=== PATIENT | female | born 1990 | race African-American/Black ===

== ENCOUNTER 2018-08-16 18:08 | Inpatient (IN) | payer OTHER ==
[~2018-08-16] VITALS: Ht 162.6 cm; Wt 58.7 kg
--- NOTE | 2018-08-16 18:43 | NUR ---
CALLED [facility] AND SPOKE WITH ROMARIO IN CT; AWARE OF STAT MRI ORDER TO BE DONE TODAY PER MD.
--- NOTE | 2018-08-16 19:08 | NUR ---
REPORT TO GRACE MISTRY
[2018-08-16] MEDS ORDERED: POTASSIUM CHLORIDE 20 MEQ TAB CR PO STA (19:10)
--- NOTE | 2018-08-16 19:12 | NUR ---
CALLED EMS FOR TRANSPORT.
[2018-08-16] MEDS ORDERED: METHYLPREDNISOLONE SOD SUCC 1,000 MG/8 ML VIAL IV SCH (19:45)
[2018-08-16] MEDS ORDERED: SODIUM CHLORIDE 0.9% IV SCH (20:00)
[2018-08-16] MEDS ORDERED: METHYLPREDNISOLONE SOD SUCC IV SCH (20:00)
--- NOTE | 2018-08-16 21:31 | NUR ---
PT ARRIVED BY [facility] TO ROOM 105, PT ABLE TO AMBULATE WITHOUT ASSIST TO HOSPITAL BED. PT IS AAOX3, RR EVEN AND NON-LABORED, ON RA. NO S/SX OF DISTRESS NOTED. PT ORIENTED TO HOSPITAL ROOM, CALL LIGHT, PHONE, BED CONTROLS AND LIGHTS. LEFT PT LAYING SEMI FOWLERS IN BED, BED IN LOW LOCKED POSITION, SIDE RAILS UPX2, CALL LIGHT AND PHONE WITHIN REACH. Addendum: 08/16/18 at 2211 by Kimberly Leal RN INCORRECT TIME, CORRECT TIME IS AT 2030
--- NOTE | 2018-08-16 21:31 | NUR ---
PT TRANSPORTED BY WHEELCHAIR TO MRI. PT IN STABLE CONDITION.
[2018-08-16] MEDS ORDERED: GADOBENATE DIMEGLUMINE 1 ML IV ONE (21:39)
--- NOTE | 2018-08-16 23:30 | NUR ---
PT TRANSPORTED BACK FROM RADIOLOGY BY WHEELCHAIR, PT IN STABLE CONDITION.
[2018-08-16] MEDS: SODIUM CHLORIDE 0.9% IV SCH (23:45)
[2018-08-16] MEDS: METHYLPREDNISOLONE SOD SUCC IV SCH (23:45)
[2018-08-17] VITALS (11 sets, daily range): BP systolic 107–120; BP diastolic 51–78
--- NOTE | 2018-08-17 01:04 | Diagnostic Imaging Report ---
MRI of the cervical, thoracic and lumbar spine with and without contrast. History: Numbness and tingling in the lower extremity progressively worsening since last week. Comparison studies: None available at the time of interpretation. Technique: Precontrast spine: Sagittal T1, T2 and inversion recovery, axial T1 and T2 cervical, thoracic and lumbar spine. Axial T2 GRE of cervical spine, coronal T2 of thoracic and lumbar spine, axial PD of lumbar spine. Postcontrast axial and sagittal T1 Intravenous contrast: 10 cc of MultiHance. Findings: Cervical spine: Spinal Cord: T2 lesion load: 3, particularly, 1. Subtle T2 hyperintense lesion in the mid dorsal cord at level C2-C3 2. A 4.5 mm (CC dimension) T2 hyperintense and mild T1 hypointense lesion in left lateral aspect of the cord at level C3. 3. A 7.7 mm (CC dimension) T2 hyperintense, T1 hypointense lesion within the central cord at level C7. T1 hypointense foci: 2. Enhancement: None. Thoracic and lumbar spine: Spinal Cord: Conus medullaris terminates at level inferior endplate of L2. T2 lesion load:3., Particularly, 1. Subtle T2 hyperintense lesion in the central/dorsal cord at level T1-T2. 2. T2 hyperintense lesion in the central cord at level T4-T5. 3. Central cord lesion(approximately measures 8.5 mm in craniocaudad dimension) at level T7-T8 involving greater than two thirds of the cross-sectional area of the cord. T1 hypointense foci:None. Enhancement: Minimal enhancement of central cord lesion at level T7-T8 best seen in image 7, series 27 suggestive of active demyelination(suboptimal evaluation due to motion artifacts of postcontrast T1 axial sequence). Additional comments: Alignment: Normal lordosis. No scoliosis.. Cervicomedullary junction: No abnormalities. The foramen magnum is patent. No Chiari one malformation.. Soft tissues: No signal abnormalities.. Vertebral bodies: No compression fractures from C2 through L5. 5 mm well-circumscribed T1/T2 hyperintense, STIR hypointense lesion in L1 vertebral body may either represent focal fat or lipid rich hemangioma. Degenerative changes: No abnormality. IMPRESSION: Multiple short segment, T2 hyperintense lesions within the cervical and thoracic cord, with a single enhancing lesion within the thoracic cord at level T7-T8. Findings represent demyelinating process like multiple sclerosis. Differential consideration includes ADEM, Neuromyelitis optica in appropriate clinical setting. Recommendation: Further evaluation with MRI of the brain with and without contrast for complete assessment. Findings were informed to FEDE Harris taking care of this patient at 12:45 AM on 08/17/2018 and was advised to inform the referring Neurologist. Signed by: Dr. Marilou Valdez M.D. on 08/17/2018 1:01 AM
--- NOTE | 2018-08-17 01:22 | NUR ---
NOTIFIED MD MALDONADO OF MRI RESULTS. NEW ORDERS RECEIVED.
[2018-08-17] MEDS: SODIUM CHLORIDE 0.9% IV SCH (09:44)
[2018-08-17] MEDS: METHYLPREDNISOLONE SOD SUCC IV SCH (09:44)
[2018-08-17 10:22] LABS: BASOPHILS % 0.3 % (0.0-1.0); HEMATOCRIT 41.2 % (34.2-44.1); HEMOGLOBIN 12.9 g/dL (12.0-16.0); LYMPHOCYTES % 13.6 % (18.0-39.1); MEAN CORPUSCULAR HEMOGLOBIN 25.1 pg (28-32); MEAN CORPUSCULAR HGB CONC 31.3 g/dL (31-35); MEAN CORPUSCULAR VOLUME 80.2 fL (81-99); MONOCYTES % 0.4 % (4.4-11.3); NEUTROPHILS % 85.1 % (38.7-80.0); PLATELET COUNT 258 x10e3/uL (140-360); RED BLOOD COUNT 5.14 x10e6/uL (3.6-5.1); RED CELL DISTRIBUTION WIDTH 13.6 % (11.7-14.4)
[2018-08-17 10:47] LABS: ALANINE AMINOTRANSFERASE 9 IU/L (0-55); ALBUMIN 4.3 g/dL (3.5-5.0); ALBUMIN/GLOBULIN RATIO 1.2 (0.8-2.0); ALKALINE PHOSPHATASE 39 IU/L (40-150); ANION GAP 13.8 mmol/L (8-16); BLOOD UREA NITROGEN 11 mg/dL (7-26); BUN/CREATININE RATIO 10 (6-25); CALCIUM 9.7 mg/dL (8.4-10.2); CARBON DIOXIDE 22 mmol/L (22-29); CHLORIDE 103 mmol/L (98-107); CREATININE, SERUM 1.11 mg/dL (0.57-1.11); EST GLOMERULAR FILTRATION RATE > 60 ML/MIN (60-); GLUCOSE 209 mg/dL (74-118); POTASSIUM 4.8 mmol/L (3.5-5.1); SODIUM 134 mmol/L (136-145)
--- NOTE | 2018-08-17 12:23 | History and Physical ---
This is a 28-year-old female. Past medical history is negative for any significant medical condition. Patient came with numbness and tingling on both lower extremities. MRI of the cervical, thoracic and lumbar spine showed demyelinating process possibly secondary to multiple sclerosis. The symptoms started 6 days before she came to the hospital. REVIEW OF SYSTEMS CARDIOVASCULAR: No chest pain or palpitations. RESPIRATORY: No shortness of breath and no cough. GASTROINTESTINAL: No nausea or vomiting. No diarrhea. GENITOURINARY: No frequency. No dysuria. She does have urinary incontinence and fecal incontinence. ALLERGIES: I SAID, NOT ALLERGIC TO ANYTHING. SOCIAL HISTORY: She does not smoke. She does not drink. She does not use recreational drugs. PHYSICAL EXAMINATION VITAL SIGNS: Blood pressure 107/51, temperature 97.9, heart rate 82 per minute, respiratory rate 18 per minute. Oxygen saturation is 99%. HEART: Regular rhythm, normal S1 and S2 sounds. LUNGS: Clear bilaterally. ABDOMEN: Soft. Nontender and nondistended. No visceromegaly. EXTREMITIES: No evidence of cyanosis, edema or trauma. NEUROLOGIC: Cranial nerves II through XII within normal limits. Motor strength is 5/5 in upper and lower extremities. Sensory is intact in upper and lower extremities. MRI of cervical, thoracic and lumber spine shows demyelinating process secondary most likely to multiple sclerosis. MRI of the brain has been ordered already. FINAL IMPRESSION 1. Numbness on the legs, rule out multiple sclerosis. 2. Urinary incontinence. 3. Fecal incontinence. PLAN OF TREATMENT: Neurology consultation with Dr. Velasquez has been requested. Patient was started on Solu-Medrol 100 mg IV daily. MRI of the brain will be done. I am going to order also physical and occupational therapy. Case has been discussed with the patient. Time spent around 50 minutes. Job#: [id number]
--- NOTE | 2018-08-17 13:10 | NUR ---
Introductory visit. Pt didn't express concerns. Intervention: Provided hospitality and information on how to reach pro shop attendant, if needed. Outcome: Will follow as able. MAJOR MCNEIL [employer] Spiritual Care Department O: [phone] Pager: [phone] ([phone] number calling from)
[2018-08-17] MEDS ORDERED: SODIUM CHLORIDE 0.9% 250ML 250 ML ONE ×2 (14:05→17:20)
[2018-08-17 14:06] LABS: LYMPHOCYTES % (MANUAL) 9 % (19-48); NEUTROPHILS % (MANUAL) 87 % (40-74)
[2018-08-17 14:07] LABS: ANISOCYTOSIS SLIGHT; HOWELL-JOLLY BODIES FEW; HYPOCHROMASIA SLIGHT; PLATELET ESTIMATE ADEQUATE; PLATELET MORPHOLOGY COMMENT NORMAL; RBC MORPHOLOGY COMMENT NORMAL
[2018-08-17 15:38] LABS: BLOOD UREA NITROGEN 11 mg/dL (7-26); BUN/CREATININE RATIO 10 (6-25); CREATININE, SERUM 1.08 mg/dL (0.57-1.11); EST GLOMERULAR FILTRATION RATE > 60 ML/MIN (60-)
[2018-08-17] MEDS ORDERED: GADOBENATE DIMEGLUMINE 1 ML IV ONE (15:48)
--- NOTE | 2018-08-17 17:00 | Diagnostic Imaging Report ---
ADDENDUM #1 CSF-like T1 hypointensities: 2 lesions in right tyler radiata. I have reviewed the images and otherwise agree with findings in preliminary report. Signed by: Dr. Marilou Valdez M.D. on 08/17/2018 8:12 PM ORIGINAL REPORT Exam: Brain MRI with and without contrast HISTORY: Multiple spinal lesions suspicious for multiple sclerosis COMPARISON: Complete spine MRI dated 08/16/2018 TECHNIQUE: Multiplanar, multisequence MRI of the brain (including diffusion-weighted imaging) was performed before and after the administration of intravenous, gadolinium based contrast. 3-D FLAIR and postcontrast T1-weighted images were obtained 10 mL of MultiHance were administered DISCUSSION: Scalp/bone marrow: Unremarkable. Ventricles: Normal in size and configuration. No hydrocephalus. Extra-axial spaces: No masses or fluid collections. Parenchyma: T2 lesion load: Number: 15 Size: The lesions measure up to 9 mm in the right periventricular region with most lesions measuring 2-6 mm. Location: Most lesions are radially oriented to the corpus callosum and the lateral ventricles as well as some more globular lesions in the deep frontoparietal white matter. There are a couple of juxtacortical lesions including one in the posterior right frontal superior gyrus measuring up to 4 mm. There is an additional 4 mm lesion within the genu of the right internal capsule. CSF-like T1 hypointensities: None. Enhancing foci: There are at least 7 faintly enhancing foci corresponding to T2/FLAIR abnormality bilaterally including one within the genu of the right internal capsule, as annotated on postcontrast axial series 7. No diffusion restriction. Corpus callosum volume: Adequate for age. Brain volume: Adequate for age. Otherwise, no mass, hemorrhage, or acute vascular insults. Vessels: Normal flow voids in major arteries and veins. Sellar/Suprasellar region: No abnormalities. Craniocervical junction: No abnormalities. Incidental findings: Mild mucosal thickening in the left maxillary sinus.. IMPRESSION: Multiple small T2 hyperintense white matter lesions, many of which are faintly enhancing, as described above. The appearance is highly suggestive of a demyelinating process such as multiple sclerosis and less likely an inflammatory disorder. This is a preliminary report was provided by the neuroradiology fellow, Dr. Zack Clemente. Attending over read to follow. Signed by: Zack Clemente MD on 08/17/2018 4:57 PM
[2018-08-17] MEDS ORDERED: IBUPROFEN 600 MG TAB PO PRN (20:15)
[2018-08-17] MEDS ORDERED: IBUPROFEN 400 MG TAB PO PRN (20:30)
[2018-08-17 20:41] LABS: FOLATE 14.5 ng/mL (7.0-15.4)
--- NOTE | 2018-08-17 21:54 | Consultation ---
DATE OF CONSULTATION: NEUROLOGY CONSULT NOTE HISTORY OF PRESENT ILLNESS: Ms. Mai is a 28-year-old right-hand dominant woman with past medical history significant only for asthma, admitted to [facility] on August 16, 2018 with numbness and tingling below the waist. Beginning approximately 1 week prior to admission, the patient noted tingling/prickling/numbness over the toes of both feet. The patient does not report weakness in either leg. She does report poor balance with some impairment of gait, which she attributes to be abnormal sensation in her feet. Over the next several days, the patient noted numbness, distal to the waist. Specifically, Ms. Mai reports she would touch herself, pinch herself or someone else would touch her, and she would feel nothing. In addition to this loss of sensation, the patient developed urinary incontinence as well. Ms. Mai further describes the symptoms as being similar to when she had an epidural approximately 2 years ago prior to delivery of her son. On the day of admission, the patient informed her primary care physician of her symptoms. The primary care physician urged the patient to proceed to an emergency center for further evaluation. In the emergency center, the patient reportedly had a sensory level at the waist (approximately T10). The emergency center physician felt the reflexes in the lower extremities were normal, or only mildly hyperreflexic. Based on Ms. Mai's description of her symptoms as well as findings on her neurological examination, the emergency center physician admitted the patient to [facility], so she can undergo an MRI of the lumbar spine. However, after I spoke to the emergency center physician, imaging orders for MRI of the entire spine with and without contrast, as well as treatment with high-dose intravenous steroids were given. Ms. Mai for does not report experiencing similar symptoms previously. She has never experienced transient vision, loss, dysarthria, aphasia, facial weakness, weakness in any extremity, dizziness, or confusion. Other than some mild urinary urgency after giving to both of her children, the patient does not report prior dysfunction of her bladder or bowel. There is no known family history of neurological disorders. REVIEW OF SYSTEMS: Nausea, vomiting, and diarrhea from recent food poisoning, numbness over the legs, impairment of balance and gait, low back pain, fatigue, headaches, anxiety, urinary incontinence. Otherwise, the 12-point review of systems is negative. PAST MEDICAL HISTORY: Asthma. PAST SURGICAL HISTORY: section x2, laparoscopic procedure for an ovarian cyst. PAST HOSPITALIZATIONS: Surgeries/procedures as listed. FAMILY MEDICAL HISTORY: Hypertension, diabetes mellitus, coronary artery disease with myocardial infarction, stroke, breast and ovarian cancer. SOCIAL HISTORY: Ms. Mai is single. 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 The patient does not report current or prior tobacco use. She reports occasional alcohol use, as well as occasional marijuana use. However, Ms. Mai reports she is "taking a break" from both at present. HOME MEDICATIONS: None. ALLERGIES: PENICILLIN. NO KNOWN FOOD ALLERGIES. NO KNOWN ALLERGIES LATEX. NO KNOWN ALLERGIES TO IODINE OR OTHER CONTRAST MATERIALS. PHYSICAL EXAMINATION VITAL SIGNS: Height 64 inches, weight 119 pounds. BMI 20.4 kg per meter squared. Blood pressure 110/98 mmHg. Pulse 93 beats per minute. Respiratory rate 18 breaths per minute, oxygen saturation 100% on room air. GENERAL: The patient is awake and alert, does not appear distressed. HEENT: Normocephalic, atraumatic. Pupils are equal, round, and reactive to light. Moist mucous membranes. NECK: Supple. No appreciable thyromegaly. No appreciable carotid bruits. CARDIOVASCULAR: S1, S2, regular rate and rhythm. No murmurs, rubs, or gallops. RESPIRATORY: Clear to auscultation bilaterally. No wheezes, rhonchi or rales. EXTREMITIES: The skin is warm and dry. No clubbing, cyanosis, or edema. The posterior tibial and dorsalis pedis pulses are 2+ and symmetric. skin: No rashes or lesions. NEUROLOGIC Memory/Attention: Patient is awake and alert, oriented to person, place, time, and situation. Cranial Nerves: Cranial nerve I--not tested. Cranial nerve II, III, IV, and --Pupils are equal and round, reacts briskly to light (from 6 mm to 3 mm). Extraocular movements intact. No nystagmus. Cranial nerve V--sensation to light touch and pinprick is intact in the bilateral V1 through V3 distributions. Strength of the temporalis and masseter muscles is within normal limits. Cranial nerve VII--the face is symmetric as are all facial movements. Strength is within normal limits. Cranial nerve VIII--hearing is intact to finger rub bilaterally. Cranial nerve IX, X--the soft palate elevates equally and symmetrically. Cranial nerve XI--normal strength of the bilateral sternocleidomastoid and trapezius muscles. Cranial nerve XII--the tongue protrudes midline moves symmetrically from side to side. Strength: Bulk is normal. Strength is 5/5 in the bilateral deltoids, biceps, triceps, wrist flexors and extensors, finger flexors and extensors, intrinsic hand muscles, hip flexors, knee flexors and extensors, ankle dorsiflexion and plantar flexion, and intrinsic foot muscles. Tone is normal. DTRs: Deep tendon reflexes are 3+ and symmetric at the triceps, biceps, brachioradialis, patellas, and Achilles. Plantar responses are flexor bilaterally. Sensation: Sensation is intact to light touch and pinprick in both arms. Sensation is decreased to light touch and pinprick in both legs distal to the T10 dermatome. Ms. Mai reports hyperpathia to light touch and pinprick distal to the T10 dermatome. Cerebellar: Sfyqxh-sxpb-ssjkcu and heel-mancia movements are intact without dysmetria or other impairment. Gait: Deferred. Speech: Spontaneous speech is normal without appreciable dysarthria or aphasia. Repetition is intact. Involuntary Movements: None. Pronator Drift: None. LABORATORY DATA: The patient's comprehensive metabolic panel is significant for a decreased sodium of 134, an elevated serum glucose of 209, a decreased alkaline phosphatase of 39, and a mildly elevated globulin of 3.6. The CBC with differential and platelets reveals a white blood cell count of 7.04 with a left shift with 85.1% neutrophils, 13.6% lymphocytes, 0.4% monocytes, 0.0% eosinophils, and 0.3% basophils. The hemoglobin and hematocrit are 12.9 and 41.2, respectively. The platelet count is 258,000. DIAGNOSTIC STUDIES 1. MRI of the brain with without contrast 08/17/2018: There are multiple small T2 hyperintense white matter lesions, many of which are faintly enhancing, as described above. The appearance is highly suggestive of a demyelinating process such as multiple sclerosis and less likely an inflammatory disorder. 2. MRI of the cervical, thoracic, and lumbar spine with or without contrast 08/16/2018: Multiple short segment, T2 hyperintense lesion within the cervical and thoracic cord, with a single enhancing lesion within the thoracic cord at level T7-T8. Findings represent demyelinating process like multiple sclerosis. Differential consideration includes ADEM, neuromyelitis optica in the appropriate clinical setting. Recommendation: Further evaluation with a MRI of the brain with or without contrast for a complete assessment. ASSESSMENT AND PLAN: Ms. Mai is a 28-year-old right-hand dominant woman without significant past medical history, admitted to [facility] on August 16, 2018 with a subacute numbness/decreased sensation to multiple modalities below the waist and urinary incontinence. The patient's neurological examination is significant for diffuse hyperreflexia and diminished sensation to light touch and pinprick with hyperpathia below the T10 dermatome. Patient's laboratory data and other diagnostic studies have been reviewed and are documented above. Ms. Mai has multiple sclerosis. The diagnosis (clinical history, possible symptoms, treatments for acute exacerbation, and, briefly, disease modifying therapy) were discussed in detail with the patient. RECOMMENDATIONS 1. Continue treatment with Solu-Medrol 1000 mg intravenously daily x5 days--day 2 of 5. 2. Additional blood work will be ordered to exclude other possible causes of the patient's symptoms to aid with decision making for future disease modifying therapy. This blood work will include: A vitamin B12 level, methylmalonic acid level, folate level, HTLV-I, II antibodies, hepatitis B panel, JOSELINE virus antibody with titer. 3. For her headaches, Ms. Mai will be prescribed ibuprofen 800 mg by mouth every 6 hours as needed for [id number]-foldgplb pain and tramadol 50 mg by mouth every 6 hours as needed for severe pain. Thank you for this consultation. I will continue to follow the patient while she remains in the hospital. TIME SPENT: 70 minutes. Job#: [id number] CQ AYAN
[2018-08-18] VITALS (7 sets, daily range): BP systolic 100–132; BP diastolic 55–66
--- NOTE | 2018-08-18 07:14 | NUR ---
REPORT GIVEN TO ONCOMING NURSE.PT RESTING IN BED WITH NO S/S OF DISTRESS.
[2018-08-18] MEDS: METHYLPREDNISOLONE SOD SUCC IV SCH (09:56)
[2018-08-18] MEDS: SODIUM CHLORIDE 0.9% IV SCH (09:56)
[2018-08-18] MEDS: TRAMADOL HCL 50 MG TAB PO PRN ×2 (10:06→21:12)
--- NOTE | 2018-08-18 12:37 | Progress Note ---
DATE: INTERNAL MEDICINE PROGRESS NOTE SUBJECTIVE: Patient came with numbness in the leg. She was diagnosed with multiple sclerosis. Patient was started on IV Solu-Medrol. Dr. Sharon Velasquez is seeing her from the neurology point of view. Physical therapy has seen her, also. PHYSICAL EXAM: VITAL SIGNS: Blood pressure 132/60, temperature 98.3, heart rate 53 per minute, respiratory rate 18 per minute, oxygen saturation 98%. HEART: Shows regular rhythm. Normal S1 and S2 sounds. LUNGS: Clear bilaterally. ABDOMEN: Soft. EXTREMITIES: Show no evidence of cyanosis, edema or trauma. NEUROLOGIC: Showed no evidence of any significant motor or sensory deficits. On the BMP: Sodium 134, potassium 4.8, chloride 103, CO2 22, BUN 11, creatinine 1.08, glucose 209. On the CBC: White blood count 7.04, hemoglobin 12.9, hematocrit 41.2, platelet count 258,000. AST 13, ALT 9, total bilirubin 0.5, alkaline phosphatase 39. FINAL IMPRESSION: 1. Numbness in both lower extremities. Most likely this is secondary to multiple sclerosis. 2. Urinary incontinence. 3. Fecal incontinence. PLAN OF TREATMENT: Continue Solu-Medrol IV daily. Continue tramadol 50 mg q.6 hours. Ibuprofen 800 mg q.6 hours as needed. Continue physical/occupational therapy. Dr. Shelby Posey is going to be covering for me starting tomorrow, August 19, at 7 a.m. until the same day at 4:30 p.m. From that time, from Wednesday at 4:30 p.m. until Wednesday at 7 a.m., Dr. Brenner will be covering for me. Job#: [id number] EV
--- NOTE | 2018-08-18 14:21 | NUR ---
ASSESSMENT: Spiritual Distress Pt surprised by illness. Pt states her illness was not what she expected. Pt thankful for family (parents, 2 children) and supportive friends during "difficult year." Intervention: Provided unhurried pastoral presence. Facilitated life review. Provided prayer. Reminded pt of availability of scientific aide. Outcome: Will follow as able. MAJOR Villanuevalain Spiritual Care Department O: [phone] Pager: [phone] ([phone] number calling from)
--- NOTE | 2018-08-18 22:10 | NUR ---
PT VOIDED IN THE HAT,CLEAR YELLOW URINE NOTED.
[2018-08-19] VITALS (8 sets, daily range): BP systolic 109–123; BP diastolic 59–69
--- NOTE | 2018-08-19 07:24 | NUR ---
REPORT GIVEN TO ONCOMING NURSE,WALKING ROUNDS MADE.PT RESTING IN BED WITH NO S/S OF DISTRESS NOTED.
--- NOTE | 2018-08-19 08:42 | Progress Note ---
DATE: August 19, 2018 I am covering for Dr. Quesada. Ms. Mai is a 28-year-old female who denies any prior medical history came to the emergency room complaining of numbness and tingling of the lower extremity and urinary incontinence. MRI of the cervical, thoracic and lumbar spine showed demyelinating process, possible multiple sclerosis. The patient has been seen by neurologist who confirmed that the patient has multiple sclerosis. PHYSICAL EXAMINATION GENERAL: Today, she is awake and alert. VITALS: Temperature is 97, blood pressure 109/61. HEART: Regular rate. LUNGS: Clear to auscultation. ABDOMEN: Soft. EXTREMITIES: She is still having numbness of the lower extremities. BLOOD WORK: Potassium is 4.8, creatinine is 1.08, glucose is 206. White count 7.04, hemoglobin 12.9, hematocrit is 41.2. ASSESSMENT AND PLAN 1. Numbness of legs. 2. Urinary incontinence. 3. Fecal incontinence. 4. The patient positive for multiple sclerosis. PLAN: At the present time, the patient was seen by Dr. Velasquez. She was started on IV Solu-Medrol 1000 mg daily for 5 days. We are going to continue with the treatment. Ibuprofen for the headaches, as well as tramadol if the headaches are too severe. All of this was discussed with the patient. All questions were answered to satisfaction. Job#: [id number] MUKESH
--- NOTE | 2018-08-19 09:20 | NUR ---
ASSESSMENT: Spiritual concern Follow up visit. Pt hopeful to return home, sleep and spend time with children. Intervention: Provided empathic listening. Provided information about grain elevator superintendent's holiday schedule. Outcome: Will continue to follow as able. MAJOR MCNEIL [employer] Spiritual Care Department O: [phone] Pager: [phone] ([phone] number calling from)
[2018-08-19] MEDS: SODIUM CHLORIDE 0.9% IV SCH (09:26)
[2018-08-19] MEDS: METHYLPREDNISOLONE SOD SUCC IV SCH (09:26)
[2018-08-19] MEDS: TRAMADOL HCL 50 MG TAB PO PRN (09:30)
--- NOTE | 2018-08-19 09:30 | NUR ---
assessment complete no distress noted updated on poc voiced understanding, co pain 03/08 to head medicated with prn meds, r ac 20g no ss of infiltration noted, no other co voiced call light in reach will continue to monitor
[2018-08-20] VITALS: BP 107/56
[2018-08-20 04:00] VITALS: BP 115/62
--- NOTE | 2018-08-20 07:09 | NUR ---
REPORT GIVEN TO ONCOMING NURSE.WALKING ROUNDS MADE.PT RESTING IN BED WITH NO S/S OF DISTRESS.
[2018-08-20 08:51] VITALS: BP 112/63
[2018-08-20] MEDS: SODIUM CHLORIDE 0.9% IV SCH (09:32)
[2018-08-20] MEDS: METHYLPREDNISOLONE SOD SUCC IV SCH (09:32)
[2018-08-20 09:35] VITALS: BP 112/63
[2018-08-20] MEDS: TRAMADOL HCL 50 MG TAB PO PRN (09:37)
[2018-08-20 13:05] VITALS: BP 135/80
--- NOTE | 2018-08-20 14:10 | Discharge Summary ---
ADMITTING DIAGNOSES: 1. Leg numbness. 2. Bladder incontinence. 3. Bowel incontinence. DISCHARGE DIAGNOSIS: Multiple sclerosis. HOSPITAL COURSE: This is a 28-year-old woman who was initially admitted to [facility] with diagnosis of leg numbness coupled with bowel and bladder incontinence. The patient underwent an MRI of the brain with and without contrast during this hospital stay that revealed multiple small T2 hyperdense white matter lesions, which were faintly enhancing. The radiologist thought that the appearance of these lesions was highly suggestive of a demyelinating process such as multiple sclerosis. The patient was seen by a neurologist during the hospitalization, namely Dr. Kristin Velasquez, who confirmed the diagnosis of multiple sclerosis. Patient was started on high-dose intravenous methylprednisolone, which she tolerated quite well. During this hospitalization, the patient's headaches resolved completely. The patient's brief hospitalization was unremarkable. During this hospital stay, patient had a hepatis panel done that was negative. She also had HTLV-1 and 2 antibody test performed in this hospitalization, the results are still pending on the day of discharge. Patient also had cerebrospinal fluid checked for JOSELINE virus DNA by PCR. The result of this test was still pending on discharge. CONDITION ON DISCHARGE: Stable. DISCHARGE MEDICATIONS: No discharge medications. FOLLOWUP INSTRUCTIONS: Patient instructed to follow up with Dr. Kristin Velasquez, her neurologist, in 1 to 2 weeks. THAD WHALEY MD Job#: [id number] JANICE cc:MD KRISTIN RÍOS
== END 2018-08-20 14:45 | disposition home or self-care (01) | DRG 59 ==
LOC: FSED 18:08 → ERHOLD 18:41 → MED/SURG 20:31 → OBSVTOIN 08-17 11:11
PROVIDERS: ADMIT Internal Medicine; ATTEND Internal Medicine
DX: G35 Multiple sclerosis (principal); K56.0 Paralytic ileus; N31.2 Flaccid neuropathic bladder, not elsewhere classified; N39.498 Other specified urinary incontinence; R15.9 Full incontinence of feces
CPT/HCPCS: 36415; 51700; 70553; 72156; 72157; 72158; 80053; 81003; 81025; 82565; 82607; 82746; 83921; 84520; 85025; 86704; 86705; 86706; 86707; 87350; 87798; 99284; G0378; J2930; J7050